=== PATIENT | female | born 1980 | race Caucasian/White ===

== ENCOUNTER 2019-09-14 08:56 | Outpatient (CLI) | payer BC ==
--- NOTE | 2019-09-14 10:00 | RAD ---
PA AND LATERAL CHEST: Date: 09/14/2019 HISTORY: Cough. FINDINGS: Heart size and mediastinum are within normal limits. Lungs are clear of infiltrates. No significant b david findings. IMPRESSION: No active intrathoracic disease. POS: [facility]
== END 2019-09-14 08:57 | disposition home or self-care (01) ==
LOC: RAD-FRANK 08:56
PROVIDERS: ATTEND Nurse Practitioner Family
DX: J45.909 Unspecified asthma, uncomplicated (principal)
CPT/HCPCS: 71046